=== PATIENT | female | born 1965 | race Caucasian/White ===

== ENCOUNTER → 2020-05-19 | Outpatient (CLI) | payer OTHER ==
[~2020-05-19] MED LIST: PERCOCET 5/325 T1 EA PO; ZOFRAN4 MG PO
== END ==
LOC: KOH-I 08:48
DX: M25.511 Pain in right shoulder (principal); M25.552 Pain in left hip; R60.0 Localized edema; M75.101 Unspecified rotator cuff tear or rupture of right shoulder, not specified as traumatic; S43.431A Superior glenoid labrum lesion of right shoulder, initial encounter; X58.XXXA Exposure to other specified factors, initial encounter
CPT/HCPCS: 73221; 73721

== ENCOUNTER → 2021-03-27 | Outpatient (CLI) | payer OTHER | LOC: KOH-I 11:10 | DX: M54.2 Cervicalgia (principal); M54.50 Low back pain, unspecified; R05.9 Cough, unspecified; M47.812 Spondylosis without myelopathy or radiculopathy, cervical region; M25.78 Osteophyte, vertebrae; M43.8X4 Other specified deforming dorsopathies, thoracic region; M43.8X6 Other specified deforming dorsopathies, lumbar region; M47.817 Spondylosis without myelopathy or radiculopathy, lumbosacral region | CPT/HCPCS: 71046; 72040; 72070; 72100 ==

== ENCOUNTER → 2021-12-06 | Outpatient (CLI) | payer OTHER | LOC: KOH-I 11-29 13:45 | DX: M51.16 Intervertebral disc disorders with radiculopathy, lumbar region (principal) | CPT/HCPCS: 72148 ==